=== PATIENT | female | born 1995 | race Two or more races ===

== ENCOUNTER 2020-01-11 09:34 | Outpatient (CLI) | payer OTHER ==
--- NOTE | 2020-01-11 11:55 | Ultrasound Report ---
PROCEDURE: OB First Trimester INDICATIONS: SUPERVISION OF NORMAL PREGN OUTSIDE/PRIOR DATING DATA: Last menstrual period (LMP): 10/17/2019 LMP-based estimated date of delivery (RHIANNA): 08/13/2020. First dating scan (date and location): 01/11/2020. Estimated date of delivery (RHIANNA) from first dating scan: 08/15/2020. TECHNIQUE: Real-time scanning was performed of the fetus and maternal pelvic organs, with image documentation. COMPARISON: None FINDINGS: Embryo: There is an intrauterine gestational sac seen, with a pole present, which measures 2.3 cm, which corresponds to an estimated gestational age of 9 weeks 0 days. cardiac activity is s een, with a measured heart rate of 165 bpm. 2 areas of subchorionic hemorrhage are seen, which measur e 9 x 5 x 14 mm superiorly and on the right and 10 x 8 x 9 mm anteriorly and on the right. A normal-a ppearing yolk sac can be seen, which measures 4 mm. Measurement variability in dating: +/- 4 weeks by LMP, +/- 7 days by mean sac diameter (use before 6 weeks gestation if crown-rump length not able to be measured), +/- 5 days by crown-rump length (6-12 weeks gestation). Maternal organs: Ovaries are unremarkable, with a presumed right ovarian corpus luteum measuring 2 c m. Limited images through the kidneys demonstrate no hydronephrosis. IMPRESSION: Single live intrauterine . 2 small areas of subchorionic hemorrhage are seen. No significant discrepancy is found between the estimated gestational age based upon these images and the estimated gestational age based upon the given date of the last menstrual period. Reviewed by: Edvin Hamilton MD on 01/11/2020 10:54 AM [facility] Approved by: Edvin Hamilton MD on 01/11/2020 10:54 AM [facility] Station ID: [id number]
== END 2020-01-11 09:35 | disposition home or self-care (01) ==
LOC: DI 09:34
PROVIDERS: ATTEND Advanced Practice Midwife
DX: O46.8X9 Other antepartum hemorrhage, unspecified trimester (principal); Z3A.00 Weeks of gestation of pregnancy not specified
CPT/HCPCS: 76801

== ENCOUNTER 2020-01-15 07:00 | Outpatient (CLI) | payer OTHER ==
[2020-01-15 15:49] LABS: MUDS CUTOFF CONCENTRATIONS CUTOFF CONC BELOW:
[2020-01-15 16:01] LABS: BILIRUBIN,URINE NEGATIVE (NEGATIVE); GLUCOSE, URINE (UA) NEGATIVE (NEGATIVE); KETONES,URINE (UA) NEGATIVE (NEGATIVE); LEUKOCYTE ESTERASE, URINE SMALL (NEGATIVE); NITRITE,URINE NEGATIVE (NEGATIVE); OCCULT BLOOD,URINE NEGATIVE (NEGATIVE); PROTEIN,URINE NEGATIVE (NEGATIVE); UROBILINOGEN,URINE 0.2 (NORMAL) E.U./dL (NORMAL)
[2020-01-15 16:18] LABS: AMORPHOUS SEDIMENT,UR Marked /LPF; BACTERIA,URINE Few /HPF (None Seen); CLARITY,URINE CLOUDY (CLEAR); RBC,URINE None Seen /HPF (0-5); SQUAMOUS EPITHELIAL CELL,UR MANY Squamous (<= Few)
[2020-01-15 16:19] LABS: AMPHETAMINE SCREEN,URINE NEGATIVE (NEGATIVE); BENZODIAZEPINES SCREEN, URINE NEGATIVE (NEGATIVE); COCAINE SCREEN URINE NEGATIVE (NEGATIVE); METHADONE SCREEN, URINE NEGATIVE (NEGATIVE); METHAMPHETAMINES SCREEN, URINE NEGATIVE (NEGATIVE); OPIATE SCREEN, URINE NEGATIVE (NEGATIVE); OXYCODONE SCREEN, URINE NEGATIVE (NEGATIVE); PROPOXYPHENE SCREEN, URINE NEGATIVE (NEGATIVE); TRICYCLIC ANTIDEPRESSANT,URINE NEGATIVE (NEGATIVE)
== END 2020-01-15 23:59 | disposition home or self-care (01) ==
LOC: LAB.R 07:00
PROVIDERS: ATTEND Advanced Practice Midwife
DX: Z34.90 Encounter for supervision of normal pregnancy, unspecified, unspecified trimester (principal); Z36.89 Encounter for other specified antenatal screening
CPT/HCPCS: 80306; 81001; 87086

== ENCOUNTER 2020-02-02 10:36 | Outpatient (CLI) | payer OTHER ==
[2020-02-02 10:54] LABS: BASOPHILS % (AUTO) 0.4 %; EOSINOPHILS # (AUTO) 0.3 10^3/uL (0.0-0.7); EOSINOPHILS % (AUTO) 2.5 %; HGB - HEMOGLOBIN 13.4 g/dL (12.0-16.0); LYMPHOCYTES # (AUTO) 1.7 10^3/uL (1.5-3.5); LYMPHOCYTES % (AUTO) 16.8 %; MEAN CORPUSCULAR HGB CONC 33.3 g/dL (32.0-36.0); MEAN PLATELET VOLUME 9.8 fL (7.9-10.8); MONOCYTES # (AUTO) 0.5 10^3/uL (0.0-1.0); MONOCYTES % (AUTO) 4.7 %; NEUTROPHILS # (AUTO) 7.5 10^3/uL (1.5-6.6); NEUTROPHILS % (AUTO) 75.2 %; PLT - PLATELET COUNT 318 10^3/uL (130-450); RED BLOOD COUNT 4.62 10^6/uL (4.20-5.40); RED CELL DISTRIBUTION WIDTH 11.9 % (12.0-15.0)
[2020-02-03 12:18] LABS: HEPATITIS C ANTIBODY NON-REACTIVE (NON-REACTIVE)
[2020-02-03 12:19] LABS: HEPATITIS B SURFACE ANTIGEN NON-REACTIVE (NON-REACTIVE)
[2020-02-03 14:01] LABS: HIV AG/AB 4TH GEN NON-REACTIVE (NON-REACTIVE)
== END 2020-02-02 10:37 | disposition home or self-care (01) ==
LOC: LAB 10:36
PROVIDERS: ATTEND Advanced Practice Midwife
DX: Z34.90 Encounter for supervision of normal pregnancy, unspecified, unspecified trimester (principal); Z36.89 Encounter for other specified antenatal screening
CPT/HCPCS: 36415; 81599; 85025; 86592; 86762; 86787; 86803; 86850; 86900; 86901; 87340; 87389

== ENCOUNTER 2020-05-17 09:51 | Outpatient (CLI) | payer OTHER ==
[2020-05-17 11:22] LABS: HCT - HEMATOCRIT 35.4 % (37.0-47.0); HGB - HEMOGLOBIN 11.8 g/dL (12.0-16.0); MEAN CORPUSCULAR HGB CONC 33.3 g/dL (32.0-36.0); MEAN PLATELET VOLUME 10.2 fL (7.9-10.8); RED BLOOD COUNT 4.07 10^6/uL (4.20-5.40); RED CELL DISTRIBUTION WIDTH 12.4 % (12.0-15.0)
== END 2020-05-17 09:52 | disposition home or self-care (01) ==
LOC: LAB 09:51
PROVIDERS: ATTEND Advanced Practice Midwife
DX: Z36.89 Encounter for other specified antenatal screening (principal)
CPT/HCPCS: 36415; 82950; 85027; 86850

== ENCOUNTER 2020-07-21 08:00 | Outpatient (CLI) | payer OTHER | END 2020-07-21 23:59 | disposition home or self-care (01) | LOC: LAB.WC 08:00 | PROVIDERS: ATTEND Nurse Practitioner Obstetrics & Gynecology | DX: Z36.85 Encounter for antenatal screening for Streptococcus B (principal) | CPT/HCPCS: 87797 ==

== ENCOUNTER 2020-07-31 17:52 | Inpatient (IN) | payer OTHER ==
[2020-07-31] MEDS ORDERED: SODIUM CHLORIDE FLUSH 0.9% 10 ML SYRINGE IVP PRN (18:35)
[2020-07-31] MEDS ORDERED: LIDOCAINE-MPF 1% 30 ML VIAL ID PRN (18:35)
[2020-07-31] MEDS ORDERED: miSOPROStoL 200 MCG TABLET BC PRN (18:35)
[2020-07-31] MEDS ORDERED: OXYTOCIN 10 UNIT/ML VIAL IM PRN (18:35)
[2020-07-31] MEDS ORDERED: TRANEXAMIC ACID IN NACL 1,000 MG/100 ML BAG IV PRN (18:35)
[2020-07-31] MEDS ORDERED: CARBOPROST TROMETHAMINE 250 MCG/ML AMP IM PRN (18:35)
[2020-07-31] MEDS ORDERED: METHYLERGONOVINE 0.2 MG/ML VIAL IM PRN (18:35)
[2020-07-31] MEDS ORDERED: OXYTOCIN/SODIUM CHLORIDE 500 ML IV PRN (18:35)
[2020-07-31 19:07] LABS: BASOPHILS # (AUTO) 0.1 10^3/uL (0.0-0.1); BASOPHILS % (AUTO) 0.4 %; EOSINOPHILS # (AUTO) 0.1 10^3/uL (0.0-0.7); EOSINOPHILS % (AUTO) 0.6 %; HCT - HEMATOCRIT 38.3 % (37.0-47.0); HGB - HEMOGLOBIN 12.7 g/dL (12.0-16.0); LYMPHOCYTES % (AUTO) 13.9 %; MEAN CORPUSCULAR HGB CONC 33.2 g/dL (32.0-36.0); MEAN CORPUSCULAR VOLUME 87.4 fL (81.0-99.0); MEAN PLATELET VOLUME 11.7 fL (7.9-10.8); MONOCYTES # (AUTO) 0.9 10^3/uL (0.0-1.0); MONOCYTES % (AUTO) 6.6 %; NEUTROPHILS # (AUTO) 11.2 10^3/uL (1.5-6.6); NEUTROPHILS % (AUTO) 78.1 %; PLT - PLATELET COUNT 291 10^3/uL (130-450); RED BLOOD COUNT 4.38 10^6/uL (4.20-5.40); RED CELL DISTRIBUTION WIDTH 13.2 % (12.0-15.0); WHITE BLOOD COUNT 14.3 x10^3/uL (4.8-10.8)
[2020-07-31] MEDS: LACTATED RINGERS 1,000 ML IV SCH ×2 (19:19→23:18)
[2020-07-31] MEDS ORDERED: ROPIVACAINE 0.2% 200 MG/100 ML BAG EP ONE (19:31)
[2020-07-31 19:37] LABS: RUPTURE OF MEMBRANES PLUS NEGATIVE (NEGATIVE)
--- NOTE | 2020-07-31 19:39 | HISTORY & PHYSICAL EXAMINATION ---
Admit History - Visit Reason Visit Reason: Contractions, Membranes rupture - : 2 Parity: 1 Premature: 0 Ectopic: 0 : 0 Care: positive: [facility] Risk/History: positive: None Complications This : positive: None Smoking Status: Never smoker - Mother's Labs Mother's Blood Type: positive: A Mother's RH: positive: Negative GBS: positive: Group B Step Negative Rubella Status: positive: Immune Review of Systems - Constitutional Constitutional: denies: Fatigue, Fever, Chills, Malaise - Eyes Eyes: denies: Blurred vision, Spots in vision, Dipolpia - Cardiovascular Cariovascular: denies: Irregular heart rate, Chest pain, Edema - Respiratory Respiratory: denies: Cough, SOB at rest - Gastrointestinal Gastrointestinal: denies: Constipation, Diarrhea, Change in bowel habits - Integumentary Integumentary: denies: Rash, Pruritis - Neurological Neurological: denies: Headache Physical - Abdominal Exam Vital Signs: Temp Pulse Resp BP Pulse Ox 37.0 C 109 H 17 132/92 H 100 07/31/20 18:10 07/31/20 18:08 07/31/20 18:08 07/31/20 18:08 07/31/20 18:08 Contraction Frequency (min/apart): 4-6 Contraction Intensity: positive: Moderate Uterine Resting Tone: positive: Soft - Monitoring Heart Rate Baseline: 145 Strip Review: positive: Category I - Presentation Presentation: positive: Vertex - Vaginal Exam Dilation (in cm): 4 Effacement (%): 80 Station: positive: -2 Cervical Position: positive: Midposition - Speculum Exam Speculum Exam Performed: positive: No Findings: positive: Other Plan for Labor - Plan For Labor I expect patient to be DC'd or transferred within 96 hours.: Yes Plan for Labor: Daniella presents to [facility] with c/o contractions and concern that her water may have broken. Onset of contractions occurred at 0700 this morning and have become progressively more intense and frequent. She states she increased her fluid intake today and attempted to rest but the contractions have continued to increase in frequency and intensity. She reports small "gush" of fluid tonight at 1730 followed by slow leaking of clear fluid. She reports +FM. She denies vaginal bleeding. She states her pain is so significant that she desires an epidural for pain management as soon as possible. She has been a patient of [facility] [place] [facility] since 9.6wks gestation. She transferred to care to [place], [place] at 13wks gestation and was seen there at the [employer] until her transfer back to [facility] at 27wks gestation. Her has remained uncomplicated. She is noted to be Rh negative and she received Rhogam at 28wks gestation. She is supported by her partner Biju. Dating criteria: LMP: 11/07/2019 Initial U/S @ 8.5wks c/w LMP dating Serial Exams: agree OB Hx: G1: 06/15/2016 @ 38wks; 17hr labor, Male, [id number]. HTN intrapartum G2: Current Medications: PNV Allergies: NKDA PMHx: no significant Surgical Hx: none Social Hx: Never smoker, No ETOH or IVDA. Partner Biju is active duty [place]. Family Hx: Stroke/CVA- MGF, uncle; HTN - MGM Course: Initial US: at 8.5 wks c/w LMP for RHIANNA of 08/13/2020. A NEGATIVE Rhogam: 05/20/2020 Rubella immune VZV- non-immune vax pp COVID-19- 04/06/2020 Gentic testing: discussed and declines FAS: Anterior placenta. SULEIMAN wnl. EFW 21%. Glucola: 116 Flu: 12/22/2019 TDAP: 05/20/2020 GBS: Negative on 07/21/50 at 36.5wks HSV: denies self and partner Breast pump Rx: 05/20/2020 MOD: . Husb: Biju. Wants Epidural. Son: Kevin. BOY -[place];. Desires IOL for childcare support (scheduled on August 06- discussed elective status, and might be bumped- understands) pp contraception: considering IUD (mirena) [place] PAP: 01/15/2020- nilm (inflammation noted) GC/CT neg Physical Exam: Normocephalic, atraumatic Heart RRR w/o M/G/R Lungs CTAB Abdomen gravid, soft, nontender FHR baseline 145, moderate variability, + accels, no decels Contractions palpate moderate very 4-6 minutes with soft resting tone SVE 4/80/-2. Vertex. ROM plus - NEG Bilateral LE's no edema Mood is good. Assessment: 25yo @ 38.1wks gestation Early labor GBS neg FHR Category I Plan: Admit to [facility]. Continuous monitoring. Anesthesia notified for placement of epidural for pain management per maternal request. Anticipate . Pt verbalized understanding and agrees to above plan. She denies further questions or concerns at this time.
[2020-07-31] MEDS ORDERED: NALOXONE 0.4 MG/ML VIAL IVP PRN (20:07)
[2020-07-31] MEDS ORDERED: METOCLOPRAMIDE 10 MG/2 ML VIAL IVP PRN (20:07)
[2020-07-31] MEDS ORDERED: ONDANSETRON 4 MG/2 ML VIAL IVP PRN (20:07)
[2020-07-31] MEDS ORDERED: ePHEDrine 50 MG/ML VIAL IVP PRN (20:07)
[2020-07-31] MEDS ORDERED: diphenhydrAMINE INJ 50 MG/ML VIAL IVP PRN (20:07)
[2020-07-31] MEDS ORDERED: ROPIVACAINE 0.2% 200 MG/100 ML BAG EP PRN (20:07)
[2020-07-31] MEDS ORDERED: NALBUPHINE 10 MG/ML AMP IVP PRN (20:07)
--- NOTE | 2020-07-31 20:07 | ANESTHESIA ---
Pre-Anesthesia VS, & Labs - Diagnosis active labor - Procedure labor epidural Vital Signs: Temp Pulse Resp BP Pulse Ox 37.0 C 109 H 17 132/92 H 100 07/31/20 18:10 07/31/20 18:08 07/31/20 18:08 07/31/20 18:08 07/31/20 18:08 - Is Patient ?: Yes - Lab Results Current Lab Results: Laboratory Tests 07/31/20 18:30: WBC 14.3 H, RBC 4.38, Hgb 12.7, Hct 38.3, MCV 87.4, MCH 29.0, MCHC 33.2, RDW 13.2, Plt Count 291, MPV 11.7 H, Neut # (Auto) 11.2 H, Lymph # (Auto) 2.0, [place] # (Auto) 0.9, Eos # (Auto) 0.1, Baso # (Auto) 0.1, Absolute Nucleated RBC 0.00, Nucleated RBC % 0.0 07/31/20 18:30: Blood Type A NEGATIVE, Antibody Screen NEGATIVE Fish Bones: 07/31/20 18:30 Home Medications and Allergies Active Medications Carboprost Tromethamine (Carboprost Tromethamine 250 Mcg/Ml Amp) 250 mcg IM Q15M PRN PRN Reason: Step 4: Hemorrhage protocol Stop: 08/05/20 18:35 Lactated Ringer's (Lr) 1,000 mls @ 150 mls/hr IV .Q6H40M CRYSTAL Last Admin: 07/31/20 19:19 Dose: 150 mls/hr Documented by: Oxytocin/Sodium Chloride (Pitocin/Sodium Chloride) 500 mls @ 999 mls/hr IV PRN PRN; Protocol PRN Reason: POST- HEMORR PREVENTION Stop: 08/05/20 18:35 Tranexamic Acid (Tranexamic 1,000 Mg/100ml-Nacl) 1,000 mg in 100 mls @ 600 mls/hr IV .ONCE PRN PRN Reason: EBL >1200mL and within 3hr Stop: 08/05/20 18:35 Lidocaine HCl (Lidocaine-Mpf 1% 30 Ml Vial) 30 ml ID .ONCE PRN PRN Reason: PERINEAL REPAIR Stop: 08/05/20 18:35 Methylergonovine Maleate (Methylergonovine 0.2 Mg/Ml Vial) 0.2 mg IM .ONCE PRN PRN Reason: Step 2: Hemorrhage protocol Stop: 08/05/20 18:35 Misoprostol (Misoprostol 200 Mcg Tablet) 800 mcg BC .ONCE PRN PRN Reason: Step 3: Hemorrhage protocol Stop: 08/05/20 18:35 Oxytocin (Oxytocin 10 Unit/Ml Vial) 10 unit IM .ONCE PRN PRN Reason: Step one: If no IV access Stop: 08/05/20 18:35 Sodium Chloride (Sodium Chloride Flush 0.9% 10 Ml Syringe) 10 ml IVP PRN PRN PRN Reason: NEEDED PER PROVIDER ORDERS Sodium Chloride (Sodium Chloride Flush 0.9% 10 Ml Syringe) 10 ml IVP 0100,0900,1700 CRYSTAL Anes History & Medical History - Anesthetic History Anesthesia Complications: reports: No previous complications Family history of Anesthesia Complications: Denies Family history of Malignant Hyperthermia: Denies - Medical History Cardiovascular: reports: None Pulmonary: reports: None Smoking Status: Never smoker - Obstetrical History : 2 Parity: 1 Events: reports: None Complications: reports: None Exam General: Alert, Oriented x3, Cooperative Dental: WNL Mouth Openin Fingerbreadth Neck Mobility: Normal Thyromental Distance: 4-6 cm Respiratory: Lungs clear Cardiovascular: Regular rate Plan Anesthesia Type: Epidural Consent for Procedure(s) Verified and Reviewed: Yes Code Status: Attempt Resuscitation ASA classification: 2-Mild systemic disease Is this case an emergency?: No
--- NOTE | 2020-07-31 20:12 | ANESTHESIA PROCEDURE NOTE ---
Anesthesia Epidural Template - Patient Report Patient Reports: positive: Pain controlled - Plan Plan: positive: Continue current management
--- NOTE | 2020-07-31 23:24 | DELIVERY NOTE ---
Delivery Note - Labor Labor: positive: Spontaneous - Delivery Method Delivery Method: positive: Spontaneous vaginal delivery - Presentation Presentation: positive: Vertex, TRACEE - left occiput anterior - Nuchal Cord Nuchal Cord: positive: None - Episiotomy Type Episiotomy Type: positive: None - Laceration Laceration: positive: None - Delivery Outcome Delivery Outcome: positive: Livebirth - : positive: Placed in direct skin contact with mother, Stimulated, Warmed, [place] used sex: positive: Male - Cord Cord: positive: 3 vessels - Placenta Placenta: positive: Intact, Spontaneous - Estimated Blood Loss Estimated Blood Loss (in cc): 100 - Post Delivery Events Post Delivery Events: positive: No post delivery events - Delivery Comments (Free Text/Narrative) Delivery Comments (Free Text/Narrative): Labor: This 25yo @ 38.1wks gestation by LMP c/w 8.4wk U/S presented on 07/31/2020 in early labor and vaginal leakage of clear fluid which occurred at 1730. Cervix was 4/80/-2 and Vertex. FHR pattern demonstrated Category I pattern. Normal labor course. Epidural placed per maternal request. Pt progressed to c/c/+2 at 2240. : Normal of a viable male infant on 07/31/2020 @ 2304. No nuchal cord. The was placed on maternal abdomen, stimulated, dried, and placed skin to skin. 's were 9 and 9 and 1 and 5 min respectively. Pitocin administered via IV for hemostasis. The umbilical cord was allowed to stop pulsating at which time it was doubly clamped by CNM and cut by FOB. 3VC. Cord blood was obtained. Fundal massage and gentle cord traction applied for active management of the third stage. Placenta delivered spontaneously and intact at 2307. EBL 100mL. Fourth stage: Uterine fundus firm and there is no excessive bleeding. The perineum, vagina, and cervix were inspected and found to be intact. Family bonding well. Both mother and baby were left in stable condition.
[2020-08-01] MEDS ORDERED: SODIUM CHLORIDE FLUSH 0.9% 10 ML SYRINGE IVP SCH (01:00)
[2020-08-01] MEDS ORDERED: WITCH HAZEL/GLYCERIN 1 PAD TOP PRN (01:59)
[2020-08-01] MEDS: IBUPROFEN 800 MG TABLET PO SCH ×3 (02:11→19:02)
[2020-08-01] MEDS: ACETAMINOPHEN 500 MG TABLET PO SCH ×3 (02:12→19:01)
--- NOTE | 2020-08-01 10:30 | PROVIDER PROGRESS NOTE ---
Subjective - Subjective Subjective: S: Bonding well with baby. Bleeding decreased and is light. Pain well controlled with oral medications. went well initially but states baby seems sleepy now. Has been hand expressing colostrum. supportive at the bedside. O: BP 111/62, T 36.6, HR 92, RR 20 Heart RRR w/o M/G/R, lungs CTAB, abdomen soft and nontender, perineum intact, light lochia rubra, bilateral LE's trace edema A: 25yo -->P2 PPD#1 s/p TSVD viable male Perineum intact P: Continue routine pp care and medications. Evaluate for discharge home tomorrow. Pt verbalized understanding and agrees to above plan. She denies further questions or concerns at this time. Objective - Vital Signs/Intake & Output Vital Signs: Vital Signs x48h Temp Pulse Resp BP Pulse Ox 08/01/20 08:00 36.6 C 92 20 111/62 98 Intake & Output: Intake & Output 07/29/20 07/30/20 07/31/20 08/01/20 23:59 23:59 23:59 23:59 Intake Total 597.5 580 Output Total 900 Balance 597.5 -320 - Lab Results Fish Bones: 07/31/20 18:30 Other Labs: Lab Results x24hrs 07/31/20 07/31/20 07/31/20 Range/Units 18:30 18:30 18:30 WBC 14.3 H (4.8-10.8) x10^3/uL RBC 4.38 (4.20-5.40) 10^6/uL Hgb 12.7 (12.0-16.0) g/dL Hct 38.3 (37.0-47.0) % MCV 87.4 (81.0-99.0) fL MCH 29.0 (27.0-31.0) pg MCHC 33.2 (32.0-36.0) g/dL RDW 13.2 (12.0-15.0) % Plt Count 291 (130-450) 10^3/uL MPV 11.7 H (7.9-10.8) fL Neut # (Auto) 11.2 H (1.5-6.6) 10^3/uL Lymph # (Auto) 2.0 (1.5-3.5) 10^3/uL [place] # (Auto) 0.9 (0.0-1.0) 10^3/uL Eos # (Auto) 0.1 (0.0-0.7) 10^3/uL Baso # (Auto) 0.1 (0.0-0.1) 10^3/uL Absolute Nucleated RBC 0.00 x10^3/uL Nucleated RBC % 0.0 /100WBC Membranes Rupture NEGATIVE (NEGATIVE) Blood Type A NEGATIVE Antibody Screen NEGATIVE
[2020-08-01] MEDS: DOCUSATE SODIUM 100 MG CAPSULE PO SCH (14:21)
[2020-08-02] MEDS: IBUPROFEN 800 MG TABLET PO SCH ×2 (02:52→10:51)
--- NOTE | 2020-08-02 07:35 | PROVIDER PROGRESS NOTE ---
Subjective - Subjective Subjective: FINAL PROGRESS NOTE: S: Bonding well with baby. Bleeding decreased and is light. Pain well controlled with oral medications. without difficulty. Hoping to get to go home today. O: BP 122/84, T 36.6, HR 82, RR 18 Heart RRR w/o M/G/R, lungs CTAB, abdomen soft and nontender with fundus firm at U-2, perineum intact, light lochia rubra, bilateral LE's trace edema. A: 25yo --> P2 PPD#2 s/p TSVD viable male P: Reviewed pp self care and warning s/sx and when to present. Encouraged continuation of PNV while . Continue taking ibuprofen and tylenol OTC as needed for pain management. F/u in 1 week for routine pp visit or sooner PRN. Pt verbalized understanding and agrees to above plan. She denies further questions or concerns at this time. Objective - Vital Signs/Intake & Output Vital Signs: Vital Signs x48h Temp Pulse Resp BP Pulse Ox 08/02/20 04:25 36.6 C 82 18 122/84 H 100 08/02/20 00:19 36.8 C 84 17 123/86 H 100 Intake & Output: Intake & Output 07/30/20 07/31/20 08/01/20 08/02/20 23:59 23:59 23:59 23:59 Intake Total 597.5 1080 Output Total 900 Balance 597.5 180 - Lab Results Fish Bones: 07/31/20 18:30
--- NOTE | 2020-08-02 07:36 | Discharge Plan ---
Discharge Plan Problem Reviewed?: Yes Disposition: Home, Self Care Condition: Good Diet: Regular Activity Restrictions: No Restrictions Shower Restrictions: No Driving Restrictions: No Weight Bearing: Full Weight No Smoking: If you smoke, Please STOP! Call for help. Follow-up with: Roberta Hills CNM, ARNP [Provider Admit Priv/Credential] -
--- NOTE | 2020-08-02 07:45 | DISCHARGE SUMMARY ---
Discharge Summary Condition at Discharge: Good Discharge Disposition: 01 Home, Self Care - HOSPITAL COURSE Hospital Course: Date of Admission: 07/31/2020 Date of Discharge: 08/02/2020 Diagnosis on Admission: 1. A 25yo @ 38.1wks gestation 2. Early labor 3. GBS neg Diagnosis on Discharge: 1. A 25yo s/p spontaneous vaginal delivery on 07/31/2020 2. 3. Normal recovery 4. Rh negative - infant Rh negative (no Rhogam administered) Brief History: She is a patient of [facility] who presented on 07/31/2020 with c/o contractions and vaginal leakage of clear fluid. The patient was found to contract every 4-6 minutes and her cervix was 4 cm dilated, 80% effaced, -2 station and vertex position. She received and epidural per her request and spontaneously progressed to deliver a viable male infant on 07/31/2020 at 2304. Apgars were 9 and 9 at 1 and 5 minutes respectively. The perineum was noted to be intact. EBL 100mL. She has been doing well in her course. She is ambulating and tolerating a regular diet. She is urinating without difficulty and her lochia is normal. Her pain is well controlled with oral medications. She is noted to be Rh negative however her infant is also Rh negative so therefore she will not receive Rhogam per protocol. She will be discharged home today on PPD#2 with instructions to continue taking her vitamin while she is , and to continue taking ibuprofen and tylenol over the counter as needed for pain management. She intended to follow up with myself at [facility] in 1 week for routine visit or sooner PRN. She has been given precautions to call if she has any worsening fevers, chills, abdominal pain, increased bleeding, or foul smelling vaginal lochia. - ALLERGIES Allergies/Adverse Reactions: Allergies Allergy/AdvReac Type Severity Reaction Status Date / Time No Known Drug Allergies Allergy Verified 07/31/20 20:15 - LABS Result Diagrams: 07/31/20 18:30
[2020-08-02] MEDS: ACETAMINOPHEN 500 MG TABLET PO SCH (08:36)
[2020-08-02] MEDS: DOCUSATE SODIUM 100 MG CAPSULE PO SCH (08:36)
[2020-08-02 09:02] VITALS: BP 119/63
--- NOTE | 2020-08-02 17:01 | Labor Flowsheet ---
Labor Flowsheet Datetime Report Generated by CPN: 08/02/2020 17:01 Datetime: 08/02/2020 08:33 VITAL SIGNS NBP Sys/Maame/Mean (mmHg): 119 : 63 : 77 Pulse: 89 LaborFlag: Labor Datetime: 07/31/2020 23:13 Anesthesia Comments: Epidural pump discontinued Datetime: 07/31/2020 23:06 MEDICATIONS Medication Comments: Pitocin started Datetime: 07/31/2020 23:00 UTERINE ACTIVITY Monitor Mode: External Frequency (min): 2-2.5 Duration (sec): 80-110 ASSESSMENT A Monitor Mode: Telemetry FHR Baseline Rate : 145 FHR Baseline Changes: No Baseline Change Variability: Moderate 6-25 bpm Accelerations: 15X15 Decelerations: None; Early; Variable Category: Category I Datetime: 07/31/2020 22:57 STAGE 2 Pushing: Coached on Pushing; Urge to Push Pushing Position: Pushing with Contractions; Pushing Lithotomy Pushing Progress: Descent with Pushing; Perineal Bulging; Presenting Part Visible; with Pu shing Datetime: 07/31/2020 22:56 I/O Interventions: [place]onte Discontinued Patient Care Comments: 100cc clear yellow urine Datetime: 07/31/2020 22:55 SpO2 (%): 100 Datetime: 07/31/2020 22:52 COMMUNICATION Communication: Provider at Bedside Datetime: 07/31/2020 22:44 Communication Comments: Roberta Reinier, CNMW called to inform pt complete Datetime: 07/31/2020 22:40 VAGINAL EXAM Dilatation (cm): 10.0 Effacement (%): 100 Exam by: B.Messersmith,RN Datetime: 07/31/2020 22:05 Membranes Ruptured Date/Time: 07/31/2020 17:30 Membranes Rupture Method: Spontaneous Amniotic Fluid Color: Clear Amniotic Fluid Amount: Small Amniotic Fluid Odor: Normal Datetime: 07/31/2020 20:51 PATIENT CARE IV/Blood Work: New IV Bag Hung Patient Position/Activity: Right Lateral; Low Fowlers Datetime: 07/31/2020 20:45 Station: -1 Vaginal Bleeding: None Cervix, Consistency: Soft Cervix, Position: Midposition TEACHING Instructional Method: Verbal; Patient Instructed; Family/Support Person Instructed Plan of Care: Plan of Care Discussed; Labor Unit Routine: Call Muñiz; Monitoring; IV Pumps Labor/Induction: Labor Stages; Activity Related: Maternal Physical Changes; Hydration; Activity and Rest Datetime: 07/31/2020 20:02 Vital Sign Comments: Pt feeling shaky. Warm blanket given to pt Datetime: 07/31/2020 20:01 ROM Test Kit: Negative Membrane Comments: Roberta Hills CNMW informed pt of negative ROM result. Will continue with plan of care. Datetime: 07/31/2020 19:59 ANESTHESIA Anesthesia Plans: Epidural Epidural Procedure: Completed Epidural Procedure Other: Pump Started Datetime: 07/31/2020 19:52 Comments: Difficulty tracing FHR at times due to maternal positioning during epidural placement Datetime: 07/31/2020 19:50 Epidural Positioning: Sitting Datetime: 07/31/2020 19:39 PROCEDURE TIME OUT Procedure Verify: Correct Patient Position Datetime: 07/31/2020 19:37 PAIN Pain Scale: 7 Pain Presence: Intermittent Pain Type: Contraction Pain Coping: Talking Through Contractions; Breathing Through Contractions Datetime: 07/31/2020 19:33 Pain Management: Epidural
== END 2020-08-02 16:45 | disposition home or self-care (01) | DRG 807 ==
LOC: WFO 17:52 → FBP 17:55 → WFO 18:34 → FBP 18:35
PROVIDERS: ADMIT Nurse Practitioner Obstetrics & Gynecology; ATTEND Nurse Practitioner Obstetrics & Gynecology
PROC: 10E0XZZ Delivery of Products of Conception, External Approach (ICD-10-PCS; principal; 2020-07-31)
DX: O80 Encounter for full-term uncomplicated delivery (principal); Z37.0 Single live birth; Z3A.38 38 weeks gestation of pregnancy
CPT/HCPCS: 36415; 84112; 85025; 86850; 86900; 86901; 99213; A9270; J7120